=== PATIENT | female | born 1945 | race Caucasian/White ===

== ENCOUNTER → 2018-06-02 09:23 | Outpatient (CLI) | payer MEDICARE, OTHER, SELFPAY ==
[2018-06-02 09:54] LABS: Add Manual Diff / Slide Review NO; Basophils Percent Auto 0.6 % (0-2); Eosinophils Percent Auto 2.9 % (2-4); Hematocrit 40.5 % (36-46); Hemoglobin 13.7 g/dL (12.0-16.0); Lymphocytes Percent Auto 42.6 % (25-40); Mean Corpuscular HGB Conc 33.9 % (30-36); Mean Corpuscular Hemoglobin 30.4 PG (26-34); Mean Corpuscular Volume 89.7 fL (80-100); Monocytes Percent Auto 6.2 % (3-14); Neutrophils Absolute Auto 3400 /uL (3000-5900); Neutrophils Percent Auto 47.7 % (50-75); Platelet Count 300 X10^3/uL (150-400); Red Blood Cell Count 4.52 X10^6/uL (4.0-5.2); Red Cell Distribution Width 13.4 % (11.6-14.8); White Blood Cell Count 7.2 X10^3/uL (4.5-11.0)
[2018-06-02 10:24] LABS: Alanine Aminotransferase 29 IU/L (9-52); Albumin 4.5 g/dL (3.5-5.0); Albumin Globulin Ratio 1.8 (1.0-2.8); Alkaline Phosphatase 77 U/L (38-126); Aspartate Aminotransferase 25 IU/L (14-36); BUN Creatinine Ratio 28.8 (6-22); Bilirubin Total 0.5 mg/dL (0.2-1.3); Blood Urea Nitrogen 23 mg/dL (7-17); Calcium 9.9 mg/dL (8.4-10.2); Carbon Dioxide 29 mmol/L (22-32); Chloride 102 mmol/L (98-107); Cholesterol 262 mg/dL (140-199); Estimated Glomerular Filt Rate > 60.0 mL/min (>60); Globulin 2.5 g/dL (1.7-4.1); Glucose 108 mg/dL (80-110); HDL Cholesterol 83 mg/dL (40-60); HEMOLYSIS < 15 (0-50); LDL Cholesterol Calculated 161 mg/dL (<100); Sodium 141 mmol/L (137-145); Triglycerides 88 mg/dL (35-150)
== END ==
PROVIDERS: PCP Physician Assistant; Visit Provider Physician Assistant
DX: E78.2 Mixed hyperlipidemia (principal)
CPT/HCPCS: 36415; 80053; 80061; 85025

== ENCOUNTER → 2018-07-19 09:54 | Outpatient (CLI) | payer MEDICARE, OTHER, SELFPAY ==
--- NOTE | 2018-07-19 | DI.MG.S_ITS ---
BILATERAL DIGITAL SCREENING MAMMOGRAM 3D/2D WITH CAD: 07/19/2018 CLINICAL: Routine screening. Family history of breast cancer. Comparison is made to exams dated: 07/05/2017 mammogram, 06/17/2016 mammogram, and 06/13/2015 mammogram - [facility]. There are scattered fibroglandular elements in both breasts. Current study was also evaluated with a Computer Aided Detection (CAD) system. No significant masses, calcifications, or other findings are seen in either breast. There has been no significant interval change. IMPRESSION: NEGATIVE There is no mammographic evidence of malignancy. A 1 year screening mammogram is recommended.(07/20/2019) This exam was interpreted at Station ID: [id number]. NOTE: For mammograms, a report in lay terms will be sent to the patient. Approximately 15% of breast malignancies will not be visualized mammographically. In the management of a palpable breast mass, a negative mammogram must not discourage biopsy of a clinically suspicious lesion. Electronically Signed By: Xavi robbins/layla:07/19/2018 11:06:14 copy to: Razia Syed letter sent: Normal Exam ACR BI-RADS Category 1: Negative 3341F
== END ==
PROVIDERS: PCP Physician Assistant; Visit Provider Physician Assistant
DX: Z12.31 Encounter for screening mammogram for malignant neoplasm of breast (principal); Z80.3 Family history of malignant neoplasm of breast; Z13.820 Encounter for screening for osteoporosis; M85.851 Other specified disorders of bone density and structure, right thigh; Z78.0 Asymptomatic menopausal state; Z90.722 Acquired absence of ovaries, bilateral; Z82.62 Family history of osteoporosis
CPT/HCPCS: 77063; 77067; 77080

== ENCOUNTER → 2019-03-19 10:26 | Outpatient (CLI) | payer MEDICARE, OTHER, SELFPAY ==
--- NOTE | 2019-03-19 | DI.RAD.S_ITS ---
PROCEDURE: XR FOOT LT MIN 3V INDICATIONS: LEFT FOOT PAIN TECHNIQUE: 3 views of the foot were acquired. COMPARISON: [facility], , FOOT 3V RIGHT, 02/07/2014, 11:20. FINDINGS: Bones: No dislocations. No suspicious bony lesions. There is a intra-articular fracture involving the medial base of the fifth proximal phalanx. It is mildly displaced. A no additional acute trauma found. Soft tissues: No tibiotalar joint effusion. Achilles tendon appears normal. IMPRESSION: Intra-articular fracture base of the fifth proximal phalanx. Dictated by: Néstor Parrish M.D. on 03/19/2019 at 11:15 Approved by: Néstor Parrish M.D. on 03/19/2019 at 11:16
== END ==
PROVIDERS: PCP Physician Assistant; Visit Provider Student in an Organized Health Care Education/Training Program
DX: M79.672 Pain in left foot (principal); S92.512A Displaced fracture of proximal phalanx of left lesser toe(s), initial encounter for closed fracture
CPT/HCPCS: 73630

== ENCOUNTER → 2019-03-26 11:00 | Outpatient (CLI) | payer MEDICARE, OTHER, SELFPAY | PROVIDERS: PCP Physician Assistant; Visit Provider Student in an Organized Health Care Education/Training Program | DX: K90.41 Non-celiac gluten sensitivity (principal) | CPT/HCPCS: 36415; 86003 ==

== ENCOUNTER 2019-04-07 21:48 | Emergency (ER) | payer MEDICARE, OTHER, SELFPAY ==
[2019-04-07 22:03] VITALS: BP 144/83; PULSE 97; RESP 22; TEMP 36.8; O2SAT 98; BMI 22.7
--- NOTE | 2019-04-07 22:14 | PC.NURSE ---
Denies any throat pain or chest pain, hx of gastric ulcer, liver disease, travel outside [place], unusual night sweats, weight loss
--- NOTE | 2019-04-07 22:22 | DI.RAD.S_ITS ---
PROCEDURE: XR CHEST 2V INDICATIONS: hemoptysis TECHNIQUE: 2 views of the chest were acquired. COMPARISON: [facility], , CHEST 1 VIEW, 06/12/2017, 13:19. FINDINGS: Surgical changes and devices: Postoperative changes of the cervical spine are incidentally noted. Lungs and pleura: Lungs are clear. No pleural effusions or pneumothorax. Mediastinum: Mediastinal contours are normal. Heart size is normal. Bones and chest wall: No suspicious bony abnormalities. Soft tissues appear unremarkable. IMPRESSION: Stable chest. No acute cardiopulmonary process is evident. Dictated by: Seferino Can M.D. on 04/08/2019 at 7:24 Approved by: Seferino Can M.D. on 04/08/2019 at 7:26
[2019-04-07 22:43] VITALS: RESP 20; O2SAT 96
--- NOTE | 2019-04-07 22:43 | PC.NURSE ---
Noticed pt having frequent dry forceful coughing with blood tinged mucus. RT informed about net treatment
[2019-04-07] MEDS: ALBUTEROL/IPRATROPIUM 3 ML AMPUL INH (22:46)
[2019-04-07 22:47] VITALS: PULSE 88; RESP 16; O2SAT 93
--- NOTE | 2019-04-07 22:53 | ED_ITS ---
HPI - URI/Sore Throat General Chief Complaint: Upper Respiratory Symptoms Stated Complaint: coughing up blood Time Seen by Provider: 04/07/19 22:00 Source: patient Mode of arrival: ambulatory Limitations: no limitations History of Present Illness HPI Narrative: Patient is a 73-year-old female. States she was just recently diagnosed with ?allergic asthma ?was prescribed an albuterol inhaler by primary provider. She states that earlier this evening she had a sudden onset of a coughing fit. Also is having some shortness of breath. Did take her albuterol inhaler. States she had multiple episodes of coughing up blood streaked sputum. He is not coughing up any clots. No chest pain. No shortness of breath. Does take a antihistamine and Flonase on a daily basis for allergies. No recent travel. Related Data Home Medications Medication Instructions Recorded Confirmed cholecalciferol (vitamin D3) 2,000 iu PO QDAY #0 07/26/17 [Vitamin D3] escitalopram oxalate 5 mg PO QDAY #0 07/26/17 naproxen sodium [Aleve] 220 mg PO #0 07/26/17 Allergies Allergy/AdvReac Type Severity Reaction Status Date / Time diclofenac [From VOLTAREN] Allergy Severe DIARRHEA, Verified 04/07/19 22:03 CRAMPS simvastatin [SIMVASTATIN] Allergy Severe MUSCLE Verified 04/07/19 22:03 SPASMS, LEG CRAMPS, EXTREME FATIGUE codeine [CODEINE] Allergy Intermediate PROLONGED Verified 04/07/19 22:03 DROWSINESS SINGULAR Allergy Severe VIOLENT Uncoded 04/07/19 22:03 DREAMS Review of Systems Constitutional Denies fever(s) Eyes Denies itchy eyes ENT Ears, Nose, Mouth, and Throat: Denies throat swelling Cardiovascular Denies chest pain, Denies dyspnea and Denies dyspnea on exertion Respiratory Reports cough, Reports hemoptysis, Denies dyspnea and Denies dyspnea on exertion Gastrointestinal Gastrointestinal: Denies abdominal pain Genitourinary Denies dysuria Integumentary/Breasts Denies new lesions and Denies rash Neurologic Denies behavioral changes Psychiatric Denies behavioral changes Hematologic/Lymphatic Denies easy bleeding and Denies easy bruising Allergic/Immunologic Denies urticaria, Denies itchy eyes and Denies throat swelling [facility] Medical History Seasonal allergies (Acute) Social History Smoking Status: Never smoker Social History Smoking Status: Never smoker Exam Initial Vital Signs Initial Vital Signs: Vital Signs Temperature 98.3 F 04/07/19 22:03 Pulse Rate 97 H 04/07/19 22:03 Respiratory Rate 22 04/07/19 22:03 Blood Pressure 144/83 H 04/07/19 22:03 Pulse Oximetry 98 04/07/19 22:03 Const General: cooperative, healthy appearing, comfortable, well developed, well groomed and No acute distress Orientation: alert, awake and oriented x3 HENMT Head: normal to inspection and normocephalic Nose: external nose normal Face and sinus: normal facial exam Resp Effort & Inspection: normal respiratory effort Auscultation: clear to auscultation bilaterally Cardio Rate: regular rate Rhythm: regular rhythm Pulses: radial pulses present GI Inspection: non-distended Palpation: soft, No firm and No tender Skin Lesions: no lesions Rashes: no rashes Neuro General: alert, awake and oriented x3 Cognition: normal cognition Speech: speech normal Gait: normal gait Extrem General: normal to inspection and capillary refill normal Psych Appearance: grossly normal and well kempt Scores GCS Katya coma scale eye opening: Spontaneous Katya coma scale verbal response: Orientated Goodman coma scale motor response: Obey commands Goodman coma scale total score: 15 Course Orders Ordered: ED Orders 04/07/19 22:22 Chest [XR chest 2V] Stat Discontinued Medications Albuterol/Ipratropium (Duoneb) 3 ml INH NOW ONE Stop: 04/07/19 22:36 Last Admin: 04/07/19 22:46 Dose: 3 ml Vital Signs - 8 hr 04/07/19 22:03 04/07/19 22:43 04/07/19 22:47 Temperature 98.3 F Pulse Rate 97 H 88 Respiratory Rate 22 20 16 Blood Pressure 144/83 H Blood Pressure [Left Arm] Pulse Oximetry 98 96 93 04/07/19 23:30 04/08/19 00:14 Temperature Pulse Rate 84 82 Respiratory Rate 18 18 Blood Pressure 103/62 Blood Pressure [Left Arm] 105/63 Pulse Oximetry 98 96 MDM - URI/Sore Throat Imaging Data Chest x-ray: Attestation: I personally reviewed and interpreted this imaging study as follows: My impression: No pneumonia, no acute process, no pneumothorax MDM Narrative Medical decision making narrative: Patient is not hypoxic, not tachypneic, she did receive a nebulizer here in the emergency department and she stated that this did seem to improve her cough somewhat. I have a low suspicion for pulmonary embolism despite the blood streaked sputum. She is not having any chest pain. I do suspect that the blood-streaked sputum secondary to irritation from the coughing episodes. She was given a spacer here in the emergency department in further training on the albuterol and the spacer. She is going to continue her allergy treatment. She was given return precautions and follow-up instructions. She expressed understanding and agreement plan. Discharge Plan Departure Patient Disposition: Home Clinical Impression: Reactive airway disease Qualifiers: Asthma severity: unspecified severity Asthma persistence: unspecified Asthma complication type: uncomplicated Qualified Code(s): J45.909 - Unspecified asthma, uncomplicated Discharge Date/Time: 04/08/19 00:14 Interventions: ED Discharge Assessment Last Done: 04/08/19 00:14 Instructions: Reactive Airway Disease-Adult Activity Restrictions/Additional Instructions: Continue all of your medications as directed. Contact your primary provider for follow-up. Return to the emergency department for any new or worsening symptoms Prescriptions: No Action escitalopram oxalate 5 MG tablet 5 mg PO QDAY Qty: 0 RF: 0 cholecalciferol (vitamin D3) [Vitamin D3] 2,000 UNIT capsule 2,000 iu PO QDAY Qty: 0 RF: 0 naproxen sodium [Aleve] 220 MG capsule 220 mg PO Qty: 0 RF: 0 Referrals: Razia Syed PA-C [Primary Care Provider] -
--- NOTE | 2019-04-07 23:15 | PC.NURSE ---
Pt reports cough improved and breathing better
[2019-04-07 23:30] VITALS: BP 105/63; PULSE 84; RESP 18; O2SAT 98
[2019-04-08 00:14] VITALS: BP 103/62; PULSE 82; RESP 18; O2SAT 96
== END 2019-04-08 00:14 | disposition home or self-care (01) ==
PROVIDERS: Emergency Provider Emergency Medicine; PCP Physician Assistant
DX: J45.909 Unspecified asthma, uncomplicated (principal)
CPT/HCPCS: 71046; 94640; 99283

== ENCOUNTER → 2019-06-20 08:57 | Outpatient (CLI) | payer MEDICARE, OTHER, SELFPAY ==
--- NOTE | 2019-06-22 12:18 | PM.PFT.1 ---
Pulmonary Function Test Referral & Results Date Patient Seen: 06/20/19 Requesting provider: Razia Syed Results: The spirometry demonstrates an FVC of 3.84 L which is 116% of predicted. The FEV1 was measured at 2.77 L which is 110% of predicted. The FEV1/FVC ratio was 72 which is 95% of predicted. Following the administration of bronchodilator there was no appreciable change to above normal numbers. Lung volumes show an SVC of 3.8 L which is 123% of predicted. The diffusing capacity was measured at 17.46 which is 61% of predicted. No hemoglobin value was provided, so no correction for potential anemia could be made, if appropriate. The maximum voluntary ventilation was normal Interpretation: This study demonstrates normal spirometry but moderately reduced diffusing capacity suggesting disease of the capillary alveolar level
== END ==
PROVIDERS: PCP Physician Assistant; Visit Provider Physician Assistant
DX: J45.20 Mild intermittent asthma, uncomplicated (principal); J98.8 Other specified respiratory disorders
CPT/HCPCS: 94060; 94726; 94729

== ENCOUNTER → 2019-07-24 11:15 | Outpatient (CLI) | payer MEDICARE, OTHER, SELFPAY ==
--- NOTE | 2019-07-24 | DI.MG.S_ITS ---
BILATERAL DIGITAL SCREENING MAMMOGRAM 3D/2D WITH CAD: 07/24/2019 CLINICAL: Routine screening. Family history of breast cancer. Comparison is made to exams dated: 07/19/2018 mammogram, 07/05/2017 mammogram, and 06/17/2016 mammogram - [facility]. There are scattered fibroglandular elements in both breasts. Current study was also evaluated with a Computer Aided Detection (CAD) system. There is a benign intramammary node in the left breast. No significant masses, calcifications, or other findings are seen in either breast. There has been no significant interval change. IMPRESSION: There is no mammographic evidence of malignancy. A 1 year screening mammogram is recommended. This exam was interpreted at Station ID: [id number]. NOTE: For mammograms, a report in lay terms will be sent to the patient. Approximately 15% of breast malignancies will not be visualized mammographically. In the management of a palpable breast mass, a negative mammogram must not discourage biopsy of a clinically suspicious lesion. Electronically Signed By: Manav davis/layla:07/24/2019 13:09:34 copy to: Razia Syed letter sent: Normal Exam ACR BI-RADS Category 2: Benign Finding(s) 3342F
--- NOTE | 2019-07-24 11:20 | DI.CT.S_ITS ---
PROCEDURE: CT CHEST HIGH RESOLUTION INDICATIONS: Abnormal results of pulmonary function studies TECHNIQUE: Noncontrast 1.0 and 5.0 mm thick contiguous axial sections from the pulmonary apex to the posterior costophrenic angles, with 7 mm thick coronal and sagittal MIP reformats. 1 mm thick dynamic expiratory images acquired through the upper, mid, and lower lungs. 1.0 mm thick axial sections acquired from the venkatesh to the posterior costophrenic angles in the prone end-inspiration position. For radiation dose reduction, the following was used: automated exposure control, adjustment of mA and/or kV according to patient size. COMPARISON: None. FINDINGS: Image quality: Excellent. Lungs: No pulmonary fibrosis or alveolitis is found. By this examination there is no suspicion for underlying pneumonia or neoplasm. Pleura: No pleural effusions or pneumothorax. Mediastinum: Heart size is normal. No pericardial effusion. Thoracic aorta and central pulmonary arteries are normal in size. Esophagus is normal in caliber. Bones and chest wall: No suspicious bony lesions. No vertebral body compression fractures. Abdomen: Visualized upper abdominal solid organs and bowel loops appear normal. IMPRESSION: Normal for age, source of abnormal pulmonary function tests is not identified. Dictated by: Néstor Parrish M.D. on 07/24/2019 at 13:53 Approved by: Néstor Parrish M.D. on 07/24/2019 at 13:55
== END ==
PROVIDERS: PCP Physician Assistant; Visit Provider Physician Assistant
DX: Z12.31 Encounter for screening mammogram for malignant neoplasm of breast (principal); Z80.3 Family history of malignant neoplasm of breast; R94.2 Abnormal results of pulmonary function studies
CPT/HCPCS: 71250; 77063; 77067

== ENCOUNTER → 2020-04-25 09:39 | Outpatient (CLI) | payer MEDICARE, OTHER, SELFPAY ==
--- NOTE | 2020-04-25 | DI.MRI.S_ITS ---
PROCEDURE: MR CERVICAL SPINE WO CON INDICATIONS: spinal stenosis TECHNIQUE: Noncontrast sagittal T1 spin echo and T2 fast spin echo, sagittal STIR, foraminal oblique sagittal T2 fast spin echo, and axial gradient echo or T2 fast spin echo through the cervical spine. COMPARISON: [facility], , CERVICAL SPINE 2 OR 3 VIEWS, 10/28/2015, 8:30. [facility], MR, C-SPINE WITHOUT CONTRAST, 07/27/2017, 17:08. [facility], MR, C-SPINE WITHOUT CONTRAST, 08/20/2015, 9:15. FINDINGS: Image quality: Diagnostic, with note made of motion artifact. There is artifact associated with the metallic hardware. Alignment and Curvature: There is mild retrolisthesis seen at the C4-C5 level. Bone Marrow: Marrow demonstrates normal overall signal. Spinal Cord: Visualized spinal cord has normal size and signal. No cerebellar tonsillar herniation. Paraspinous Soft Tissues: No paravertebral masses. Prevertebral soft tissues are normal in thickness. C2-C3: The disc height is well-preserved. Loss of disc signal is seen at this level. No significant neural foraminal or central canal narrowing can be seen. When comparison is made with the prior examination, these findings are similar. C3-C4: Moderate loss of disc height is seen. Loss of disc signal is seen. Moderate generalized disc osteophyte complex is seen. There is a central disc osteophyte protrusion seen. There is moderate to prominent right-sided and [id number] left-sided facet hypertrophy seen. There is moderate bilateral neural foraminal narrowing seen. Mild to moderate central canal narrowing is seen. These imaging findings have progressed compared to the prior study. C4-C5: Moderate to severe loss of disk height and disk signal can be seen. Reactive marrow endplate changes are seen, which are hyperintense on T1-weighted and T2-weighted imaging and most consistent with fatty metaplasia (Modic type II changes). At least moderate disc osteophyte complex is seen. Moderate facet hypertrophy is seen, right worse than left. There is moderate to severe right-sided and at least moderate left-sided neural foraminal narrowing seen. Mild central canal narrowing is seen. Mild progression compared to 2017. C5-C6: An anteriorly placed disk fusion device is seen. Moderate disc osteophyte complex is seen, with a central/right disc osteophyte protrusion. There is moderate right-sided and [id number] left-sided facet hypertrophy seen at this level. There is no significant right-sided and at least moderate left-sided neural foraminal narrowing seen. Mild to moderate central canal narrowing is seen. When comparison is made with the prior examination, these findings are similar. C6-C7: An anteriorly placed disc fusion device is seen at this level. Moderate generalized disc osteophyte complex is seen. Mild to moderate facet hypertrophy is seen. There is moderate bilateral neural foraminal narrowing seen, left worse than right. Minimal central canal narrowing is seen. When comparison is made with the prior examination, these findings are similar. C7-T1: The disc height is well-preserved. Loss of disc signal is seen at this level. A mild degree of generalized disc osteophyte complex is seen. There is mild to moderate left-sided and right-sided neural foraminal narrowing seen. No central canal narrowing is seen. When comparison is made with the prior examination, these findings are similar. IMPRESSION: Anteriorly placed disk fusion devices are seen at C5-C6 and C6-C7. Mild interval progression of degenerative change at C3-C4. The degenerative changes otherwise appear similar to 2017. Dictated by: Harpreet Carreon M.D. on 04/25/2020 at 10:20 Approved by: Harpreet Carreon M.D. on 04/25/2020 at 10:27
== END ==
PROVIDERS: PCP Physician Assistant; Referring Provider Orthopaedic Surgery; Visit Provider Orthopaedic Surgery
DX: M48.02 Spinal stenosis, cervical region (principal); M47.812 Spondylosis without myelopathy or radiculopathy, cervical region; Z98.1 Arthrodesis status
CPT/HCPCS: 72141

== ENCOUNTER 2020-07-10 18:48 | Emergency (ER) | payer MEDICARE, OTHER, SELFPAY ==
[2020-07-10 18:50] VITALS: BP 187/108; PULSE 102; RESP 18; TEMP 35.8; O2SAT 97; BMI 22.2
[2020-07-10 19:37] LABS: Appearance Urine UA CLEAR; Bilirubin Urine UA NEGATIVE (NEGATIVE); Color Urine UA YELLOW; Glucose Urine UA NEGATIVE (Negative); Ketones Urine UA NEGATIVE (NEGATIVE); Leukocyte Esterase Urine UA 1+ (NEGATIVE); Nitrite Urine UA NEGATIVE (Negative); Occult Blood Urine UA 3+ (Negative); Protein Urine UA 2+ (Negative)
[2020-07-10 19:39] LABS: Bacteria Urine Few (2-10); Culture Indicated Urine Specimen Cultured; RBC Urine 30-100/HPF (0-5/HPF); Squamous Epithelial Cell Urine 1-5 /HPF (0-5/HPF); WBC Urine 30-100/HPF (0-5/HPF); pH Urine UA 6.5 (4.5-8.0)
--- NOTE | 2020-07-10 20:45 | ED_ITS ---
HPI - Female Genitourinary General Chief complaint: Urogenital-Female Stated complaint: states bladder infection Time Seen by Provider: 07/10/20 19:01 Source: patient Mode of arrival: Ambulatory Limitations: no limitations History of Present Illness HPI Narrative: 74-year-old female nonsmoker with noncontributory medical history presents with a chief complaint few hours urinary frequency, dysuria and suprapubic cramping. She has small amount blood in her urine and states her symptoms are very much consistent with prior episodes urinary tract infection. She denies any fever chills. She has no nausea, vomiting or back pain. MD Complaint: dysuria and UTI Location: suprapubic Severity: moderate Quality: Cramping Duration: intermittent Relieving factors: none Exacerbating factors: urination Urinary symptoms: Difficulty Urinating, Dysuria, Foul Smelling Urine, Frequency and Hematuria Patient : No Associated symptoms: denies other symptoms Related Data Home Medications Medication Instructions Recorded Confirmed cholecalciferol (vitamin D3) 2,000 iu PO QDAY #0 07/26/17 [Vitamin D3] escitalopram oxalate 5 mg PO QDAY #0 07/26/17 naproxen sodium [Aleve] 220 mg PO #0 07/26/17 Previous Rx's Medication Instructions Recorded cephalexin [Keflex] 500 mg PO QID 7 Days #28 cap 07/10/20 fluconazole 150 mg PO Q3D #2 tab 07/10/20 Allergies Allergy/AdvReac Type Severity Reaction Status Date / Time diclofenac [From VOLTAREN] Allergy Severe DIARRHEA, Verified 07/10/20 19:09 CRAMPS simvastatin [SIMVASTATIN] Allergy Severe MUSCLE Verified 07/10/20 19:09 SPASMS, LEG CRAMPS, EXTREME FATIGUE codeine [CODEINE] Allergy Intermediate PROLONGED Verified 07/10/20 19:09 DROWSINESS SINGULAR Allergy Severe VIOLENT Uncoded 07/10/20 19:09 DREAMS Review of Systems Constitutional Constitutional: Denies chills, Denies fatigue, Denies fever(s), Denies frequent falls, Denies lethargy and Denies weakness Eyes Eyes: Denies change in vision, Denies eye discharge, Denies irritation and Denies loss of vision ENT Ears, Nose, Mouth, and Throat: Denies change in voice, Denies dizziness, Denies neck pain, Denies sore throat and Denies throat swelling Cardiovascular Cardiovascular: Denies chest pain, Denies irregular heart rhythm, Denies lightheadedness, Denies palpitations, Denies dyspnea, Denies dyspnea on exertion and Denies orthopnea Respiratory Respiratory: Denies cough, Denies dyspnea, Denies dyspnea on exertion and Denies wheezing Gastrointestinal Gastrointestinal: Denies abdominal pain, Denies change in bowel habits, Denies diarrhea, Denies nausea and Denies vomiting Genitourinary Genitourinary: Reports hematuria, Reports dysuria and Reports dysuria Genitourinary: Reports hematuria, Reports dysuria and Reports dysuria Musculoskeletal Musculoskeletal: Denies neck pain and Denies numbness Integumentary/Breasts Skin/Breast: Denies pruritus, Denies erythema, Denies rash and Denies wounds Neurologic Neurologic: Denies behavioral changes, Denies confusion, Denies dizziness, Denies frequent falls, Denies loss of vision, Denies numbness and Denies weakness Psychiatric Psychiatric: Denies anxiety, Denies behavioral changes, Denies confusion, Denies depression, Denies homicidal ideation and Denies suicidal ideation Endocrine Endocrine: Denies fatigue, Denies flushing and Denies palpitations Hematologic/Lymphatic Hematologic/Lymphatic: Denies easy bruising Allergic/Immunologic Allergic/Immunologic: Denies urticaria, Denies throat swelling and Denies wheezing Patient History Medical History Seasonal allergies (Acute) alcohol intake frequency: a few times a week Substance Use Type: does not use Exam Narrative Exam Narrative: GEN: AOx3 and in mild distress EYES: Pupils are equal, round, and reactive to light and accommodation. Extraoccular muscles are intact bilaterally. There is no subconjunctival hemorrhage or exudate. CHEST: Lungs are clear to auscultation bilaterally and free of wheezes, rales, or rhonchi. Heart rate is regular rhythm, there are no murmurs, clicks, rubs, or gallops. There is no chest wall tenderness. ABD: Abdomen is soft and mildly tender in the suprapubic region There is no guarding or rebound. Bowel sounds are normal in all 4 quadrants. There is no mass or organomegaly. EXT: Full painless ROM of all extremities with no loss of sensation or strength. SKIN: Warm, pink, and dry. No erythema or rash Initial Vital Signs Initial Vital Signs: Vital Signs Temperature 96.5 F L 10/01/20 18:50 Pulse Rate 102 H 07/10/20 18:50 Respiratory Rate 18 07/10/20 18:50 Blood Pressure 187/108 H 07/10/20 18:50 Pulse Oximetry 97 07/10/20 18:50 Course Orders Ordered: ED Orders 07/10/20 19:29 Urinalysis and Microscopic Stat Urine Culture Stat Discontinued Medications Cefazolin Sodium (Keflex 250 Mg Prepack) 1 bottle MISC SEEINSTR ONE Stop: 07/10/20 20:48 Last Admin: 07/10/20 20:58 Dose: 500 mg Documented by: SUHAS Vital Signs Vital signs: Vital Signs - 8 hr 07/10/20 18:50 07/10/20 21:05 Temperature 96.5 F L Pulse Rate 102 H 74 Respiratory Rate 18 17 Blood Pressure 187/108 H 148/83 H Pulse Oximetry 97 98 MDM - Female Genitourinary Lab Data Labs: Lab Results 07/10/20 Range/Units 19:29 Urine Color Yellow Urine Appearance Clear Urine pH 6.5 (4.5-8.0) Ur Specific Isabella 1.020 (1.000-1.035) Urine Protein 2+ H (Negative) Urine Glucose (UA) Negative (Negative) g/dL Urine Ketones Negative (NEGATIVE) Urine Occult Blood 3+ H (Negative) Urine Nitrate Negative (Negative) Urine Bilirubin Negative (NEGATIVE) Urine Urobilinogen 1.0 (0.2) E.U./dL Ur Leukocyte Esterase 1+ H (NEGATIVE) Urine RBC 30-100/hpf H (0-5/HPF) Urine WBC 30-100/hpf H (0-5/HPF) Ur Squamous Epith Cells 1-5 /hpf (0-5/HPF) Urine Bacteria Few (2-10) H (None) Ur Culture Indicated? Specimen cultured Discharge Plan Departure Patient Disposition: Home Clinical Impression: Acute UTI Discharge Date/Time: 07/10/20 21:06 Instructions: DI for Urinary Tract Infection (UTI) Activity Restrictions/Additional Instructions: *You have been diagnosed with [acute urinary tract infection] *What to do: *Take medications as directed: Prescriptions electronically transmitted to the [facility] [place] at your request *Follow up with your primary care provider in 2-3 days, call for an appointment. Let them know you were seen in the Emergency Department and that we ask that you be seen in follow up *Return to ER if you should have any new, worsening or concerning symptoms, such as [fever greater than 101, shaking chills, vomiting, back pain or other bothersome symptoms] Prescriptions: New fluconazole 150 mg tablet 150 mg PO Q3D Qty: 2 RF: 0 cephalexin [Keflex] 500 mg capsule 500 mg PO QID 7 Days Qty: 28 RF: 0 No Action escitalopram oxalate 5 MG tablet 5 mg PO QDAY Qty: 0 RF: 0 cholecalciferol (vitamin D3) [Vitamin D3] 2,000 UNIT capsule 2,000 iu PO QDAY Qty: 0 RF: 0 naproxen sodium [Aleve] 220 MG capsule 220 mg PO Qty: 0 RF: 0 Referrals: Razia Syed PA-C [Primary Care Provider] -
[2020-07-10] MEDS: cephALEXin 250 MG PREPACK 1 BOTTLE MISC (20:58)
[2020-07-10 21:05] VITALS: BP 148/83; PULSE 74; RESP 17; O2SAT 98
== END 2020-07-10 21:06 | disposition home or self-care (01) ==
PROVIDERS: Emergency Provider Emergency Medicine; PCP Physician Assistant
DX: N39.0 Urinary tract infection, site not specified (principal)
CPT/HCPCS: 81001; 87077; 87086; 87186; 99281; 99282

== ENCOUNTER → 2020-07-26 15:40 | Outpatient (CLI) | payer MEDICARE, OTHER, SELFPAY ==
--- NOTE | 2020-07-26 | DI.MG.S_ITS ---
BILATERAL DIGITAL SCREENING MAMMOGRAM 3D/2D WITH CAD: 07/26/2020 CLINICAL: Routine screening. Family history of breast cancer. Comparison is made to exams dated: 07/24/2019 mammogram, 07/19/2018 mammogram, and 07/05/2017 mammogram - [facility]. There are scattered fibroglandular elements in both breasts. Current study was also evaluated with a Computer Aided Detection (CAD) system. No significant masses, calcifications, or other findings are seen in either breast. There has been no significant interval change. IMPRESSION: NEGATIVE There is no mammographic evidence of malignancy. A 1 year screening mammogram is recommended. This exam was interpreted at Station ID: [id number]. NOTE: For mammograms, a report in lay terms will be sent to the patient. Approximately 15% of breast malignancies will not be visualized mammographically. In the management of a palpable breast mass, a negative mammogram must not discourage biopsy of a clinically suspicious lesion. Electronically Signed By: Enmanuel suarez/layla:07/28/2020 12:22:20 copy to: Razia Syed letter sent: Normal Exam ACR BI-RADS Category 1: Negative 3341F
== END ==
PROVIDERS: PCP Physician Assistant; Referring Provider Physician Assistant; Visit Provider Physician Assistant
DX: Z12.31 Encounter for screening mammogram for malignant neoplasm of breast (principal); Z80.3 Family history of malignant neoplasm of breast
CPT/HCPCS: 77063; 77067

== ENCOUNTER → 2020-08-05 07:29 | Outpatient (CLI) | payer MEDICARE, OTHER, SELFPAY ==
[2020-08-05 08:19] LABS: Add Manual Diff / Slide Review NO; Basophils Absolute Auto 0 /uL (0-100); Basophils Percent Auto 0.6 % (0-2); Eosinophils Absolute Auto 200 /uL (0-450); Eosinophils Percent Auto 3.4 % (2-4); Hematocrit 39.6 % (36-46); Lymphocytes Absolute Auto 3100 /uL (1100-4500); Lymphocytes Percent Auto 43.2 % (25-40); Mean Corpuscular HGB Conc 32.8 % (30-36); Mean Corpuscular Hemoglobin 29.6 PG (26-34); Mean Corpuscular Volume 90.5 fL (80-100); Monocytes Absolute Auto 400 /uL (0-900); Monocytes Percent Auto 5.6 % (3-14); Neutrophils Absolute Auto 3400 /uL (1500-7000); Neutrophils Percent Auto 47.2 % (50-75); Platelet Count 279 X10^3/uL (150-400); Red Blood Cell Count 4.37 X10^6/uL (4.0-5.2); Red Cell Distribution Width 13.8 % (11.6-14.8); White Blood Cell Count 7.2 X10^3/uL (4.5-11.0)
[2020-08-05 08:58] LABS: Alanine Aminotransferase 27 IU/L (<35); Albumin 4.3 g/dL (3.5-5.0); Albumin Globulin Ratio 1.8 (1.0-2.8); Alkaline Phosphatase 55 U/L (38-126); Aspartate Aminotransferase 28 IU/L (14-36); BUN Creatinine Ratio 27.9 (6-22); Bilirubin Total 0.5 mg/dL (0.2-1.3); Blood Urea Nitrogen 17 mg/dL (7-17); Calcium 9.7 mg/dL (8.4-10.2); Carbon Dioxide 30 mmol/L (22-32); Chloride 107 mmol/L (98-107); Cholesterol 209 mg/dL (140-199); Estimated Glomerular Filt Rate > 60.0 mL/min (>60); Globulin 2.4 g/dL (1.7-4.1); Glucose 110 mg/dL (80-110); HDL Cholesterol 74 mg/dL (40-60); HEMOLYSIS < 15 (0-50); LDL Cholesterol Calculated 111 mg/dL (<100); Potassium 4.7 mmol/L (3.4-5.1); Sodium 141 mmol/L (137-145); Total Protein 6.7 g/dL (6.3-8.2); Triglycerides 120 mg/dL (35-150)
== END ==
PROVIDERS: PCP Physician Assistant; Referring Provider Physician Assistant; Visit Provider Physician Assistant
DX: E78.2 Mixed hyperlipidemia (principal); R03.0 Elevated blood-pressure reading, without diagnosis of hypertension
CPT/HCPCS: 36415; 80053; 80061; 85025

== ENCOUNTER → 2020-08-13 13:03 | Outpatient (CLI) | payer MEDICARE, OTHER, SELFPAY | PROVIDERS: PCP Physician Assistant; Referring Provider Physician Assistant; Visit Provider Physician Assistant | DX: M85.851 Other specified disorders of bone density and structure, right thigh (principal); Z78.0 Asymptomatic menopausal state; Z90.722 Acquired absence of ovaries, bilateral | CPT/HCPCS: 77080 ==

== ENCOUNTER → 2021-07-27 14:54 | Outpatient (CLI) | payer MEDICARE, OTHER, SELFPAY ==
--- NOTE | 2021-07-27 | DI.MG.S_ITS ---
BILATERAL DIGITAL SCREENING MAMMOGRAM 3D/2D WITH CAD: 07/27/2021 CLINICAL: Routine screening. Family history of breast cancer. Comparison is made to exams dated: 07/26/2020 mammogram, 07/24/2019 mammogram, 07/19/2018 mammogram, 07/05/2017 mammogram, and 06/17/2016 mammogram - [facility]. There are scattered fibroglandular elements in both breasts. Current study was also evaluated with a Computer Aided Detection (CAD) system. No significant masses, calcifications, or other findings are seen in either breast. There has been no significant interval change. IMPRESSION: NEGATIVE There is no mammographic evidence of malignancy. A 1 year screening mammogram is recommended. This exam was interpreted at Station ID: [id number]. NOTE: For mammograms, a report in lay terms will be sent to the patient. Approximately 15% of breast malignancies will not be visualized mammographically. In the management of a palpable breast mass, a negative mammogram must not discourage biopsy of a clinically suspicious lesion. Electronically Signed By: Yo ash/layla:07/27/2021 15:25:21 copy to: Razia Syed letter sent: Normal Exam ACR BI-RADS Category 1: Negative [id number]
== END ==
PROVIDERS: PCP Physician Assistant; Referring Provider Physician Assistant; Visit Provider Physician Assistant
DX: Z12.31 Encounter for screening mammogram for malignant neoplasm of breast (principal); Z80.3 Family history of malignant neoplasm of breast
CPT/HCPCS: 77063; 77067

== ENCOUNTER → 2022-02-15 07:51 | Outpatient (CLI) | payer MEDICARE, OTHER, SELFPAY ==
[2022-02-15 08:53] LABS: Hemoglobin A1C% w Est Avg Glu 5.6 % (4.0-6.0)
[2022-02-15 08:54] LABS: Add Manual Diff / Slide Review NO; Basophils Absolute Auto 100 /uL (0-100); Basophils Percent Auto 0.8 % (0-2); Eosinophils Absolute Auto 200 /uL (0-450); Eosinophils Percent Auto 2.9 % (2-4); Hematocrit 38.4 % (36-46); Hemoglobin 13.1 g/dL (12.0-16.0); Lymphocytes Absolute Auto 2500 /uL (1100-4500); Lymphocytes Percent Auto 38.4 % (25-40); Mean Corpuscular Hemoglobin 30.3 PG (26-34); Monocytes Absolute Auto 400 /uL (0-900); Monocytes Percent Auto 6.3 % (3-14); Neutrophils Absolute Auto 3400 /uL (1500-7000); Neutrophils Percent Auto 51.6 % (50-75); Platelet Count 246 X10^3/uL (150-400); Red Blood Cell Count 4.32 X10^6/uL (4.0-5.2); Red Cell Distribution Width 13.7 % (11.6-14.8); White Blood Cell Count 6.5 X10^3/uL (4.5-11.0)
[2022-02-15 08:59] LABS: BUN Creatinine Ratio 28.6 (6-22); Blood Urea Nitrogen 20 mg/dL (7-17); Calcium 9.1 mg/dL (8.4-10.2); Carbon Dioxide 29 mmol/L (22-32); Chloride 106 mmol/L (98-107); Estimated Glomerular Filt Rate > 60 mL/min (>60); Glucose 109 mg/dL (80-110); HEMOLYSIS < 15 (0-50); Potassium 4.2 mmol/L (3.4-5.1); Sodium 139 mmol/L (137-145)
== END ==
PROVIDERS: PCP Physician Assistant; Referring Provider Orthopaedic Surgery; Visit Provider Orthopaedic Surgery
DX: Z01.818 Encounter for other preprocedural examination (principal); R73.9 Hyperglycemia, unspecified; M25.561 Pain in right knee; Z01.812 Encounter for preprocedural laboratory examination
CPT/HCPCS: 36415; 80048; 83036; 85025; 93005

== ENCOUNTER → 2022-03-01 09:39 | Outpatient (CLI) | payer MEDICARE, OTHER, SELFPAY ==
[2022-03-01 12:27] LABS: COVID19 -Nasal RAPID Negative (Negative)
== END ==
PROVIDERS: PCP Physician Assistant; Visit Provider Family Medicine Sleep Medicine
DX: Z20.822 Contact with and (suspected) exposure to COVID-19 (principal); Z01.812 Encounter for preprocedural laboratory examination
CPT/HCPCS: 87635; C9803

== ENCOUNTER 2022-03-03 06:16 | Day surgery (SDC) | payer MEDICARE, OTHER, SELFPAY ==
[2022-02-23 10:01] VITALS: BMI 22.4
[2022-03-03] VITALS (15 sets, daily range): BP systolic 102–125; BP diastolic 68–86; PULSE 73–115; RESP 10–18; TEMP 35.4–36.4; O2SAT 92–98; BMI 22.4
--- NOTE | 2022-03-03 06:00 | DI.RAD.S_ITS ---
PROCEDURE: XR KNEE RT 1TO2V INDICATIONS: TKA TECHNIQUE: 2 view(s) of the knee acquired. COMPARISON: [facility], , KNEE 3V RIGHT, 01/19/2016, 11:01. FINDINGS: Bones: Patient is status post knee joint arthroplasty. Hardware components are in expected positions. Visualized bony structures are intact. Soft tissues: Overlying postoperative changes are noted. IMPRESSION: Expected appearance status post right total knee arthroplasty. Dictated by: Uyen Rios M.D. on 03/03/2022 at 11:19 Approved by: Uyen Rios M.D. on 03/03/2022 at 11:19
[2022-03-03] MEDS: GABAPENTIN 300 MG CAPSULE PO ×2 (06:58)
[2022-03-03] MEDS: ACETAMINOPHEN 325 MG TABLET 975 MG PO (06:58)
[2022-03-03] MEDS: CELECOXIB 200 MG CAPSULE PO (07:00)
[2022-03-03] MEDS: LACTATED RINGERS 1,000 ML 42 ML IV ×2 (07:07→10:32)
--- NOTE | 2022-03-03 07:32 | PM.PREOP ---
Pre-operative Note COVID-19 COVID-19 status: Negative Result date/Date tested (Pos, Neg/Pending): 03/01/22 Interval Note History & Physical reviewed/Exam performed by Physician: Yes Changes to H&P: No
[2022-03-03] MEDS: ALPRAZolam 0.5 MG TABLET PO (08:14)
[2022-03-03] MEDS: CEFAZOLIN 2 GM/20 ML SYRINGE IV (09:23)
[2022-03-03] MEDS: TRANEXAMIC ACID 1,000 MG VIAL 2000 MG INJ ×2 (09:29→10:19)
--- NOTE | 2022-03-03 09:35 | SUR.OPER ---
Supine on padded OR bed. Pillow under head, arms secured on padded armboards <90 degree abduction. Safety belt across torso. Non-operative leg secured with tape over blanket over lower leg. Operative leg secured in [place].
[2022-03-03] MEDS: BUPIVACAINE LIPOSOME 266 MG/20 ML VIAL INJ (09:38)
[2022-03-03] MEDS: BUPIVACAINE 0.25% W/ EPI 30 ML VIAL 50 ML INJ (09:42)
[2022-03-03] MEDS: MORPHINE 4 MG/ML INJ INJ (09:43)
--- NOTE | 2022-03-03 10:45 | P.OP_ITS ---
Operative Date/Time/Diagnoses Date of procedure: 03/03/22 Time of procedure: 10:45 Pre-op diagnosis: Right knee osteoarthritis Post-op diagnosis: same Procedure & Clinicians Procedure: Right total knee replacement Same procedure as scheduled: Yes Indications: The patient has had progressively worsening right knee pain with radiographic changes consistent with arthritis. Non-operative management has failed and the patient has requested total knee replacement. The risks, benefits and alternatives to surgery were discussed with the patient prior to proceeding. Risks discussed included, but were not limited to, failure to relieve pain, stiffness, infection, nerve damage, deep venous thrombosis, pulmonary embolism, stroke, coma, heart attack, permanent paralysis and , as well as the potential need for eventual revision of the prosthetic. Surgeon: Vlad Fairbanks Industrial Seamstress: Malissa Olson Anesthesia Type: General, Spinal and Local Operative Notes Findings: Severe tricompartmental osteoarthritis which was worst in the lateral compartment. Closure Type: primary Specimen(s): none sent Prosthetic devices, grafts, tissues, transplants, or devices: Implants used in this procedure were manufactured by the [email or web address] and [employer] and included the BCS II Journey total knee replacement with a size 4 right cobalt chromium femur, a size 3 right non porous tibial base plate, a 10 mm cross-linked polyethylene tibial insert and a 32 mm oval Sherry II patellar component. Applied: device(s) Estimated Blood Loss (mL): 25 Blood products transfused: none Tourniquet time (min): 45 Procedure in detail: The patient was seen in the pre-operative area, where the patient identified the right knee as the operative site and this was marked with my initials. The patient received pre-operative antibiotics, and was taken to the operating room and placed on the operative table in the supine position. After satisfactory anesthesia, a time lock expert out was performed. The right leg was encircled with a tourniquet about the proximal thigh, and the leg was prepared from the toes to the tourniquet with ChloroPrep in the usual fashion and draped through sterile drapes. The leg was elevated and exsanguinated with Eschmark bandage and the tourniquet inflated to 250 mmHg pressure. The knee was approached through an approximately 18 cm incision centered over the patella and carried into the knee through a medial parapatellar arthrotomy. The anterior osteophytes and soft tissues were removed. The rotational landmarks of Dixon's line and the transepicondylar axis were marked on the femur with electrocautery, and intramedullary guide holes for the femur and tibia were created. The distal femoral cut was made in 6 degrees of valgus using the in tramedullary guide at the primary cut setting. The proximal tibial cut was then made using the intramedullary guide, taking 7 mm of bone off the less involved medial side. The extension gap was checked and the rotation of the femoral component confirmed with the gap balancing system. The anterior, posterior and chamfer cuts were then made. The posterior osteophytes and soft tissues were then removed. The posterior capsule was injected with part of a mixture of 50 ml 0.25% Marcaine mixed with 20 ml Exparel and 4 mg of morphine for post-operative pain control. The remainder of this mixture was injected into the capsule and subcutaneous tissues during cement curing. The tibia was prepared with the rotation set by an extra medullary guide. Trial tibial and femoral components were then placed and the intercondylar notch cut through the femoral trial. Range of motion was 0-135 degrees, with good stability throughout the range. The patella was then cut to accommodate the patellar prosthetic. There was no need for a lateral release. The trials were then removed, and the femoral hole plugged with a bone plug. The bone was prepared with pulsatile lavage, and dried with a sponge. Cement was applied and the final prosthetics placed. Excess cement was removed during and after cement curing. After confirming there was no extruded cement posteriorly, the final tibial insert was placed. The knee was copiously irrigated and the tourniquet deflated. Hemostasis was obtained. The capsule was closed with interrupted # 2 polyester suture. The subcutaneous layer was closed with 3-0 Vicryl, and the skin with a running 3-0 V-Lock suture and Dermabond. An Aquacel Ag dressing was applied and the patient was taken to recovery having tolerated the procedure well. Complications: none Post-operative Condition: stable Disposition: PACU Plan for aftercare: The patient will be maintained on a standard total knee replacement protocol with weight bearing as tolerated. The patient will receive aspirin and sequential compression devices for DVT prophylaxis. The patient will be discharged home when safe for the home environment.
[2022-03-03] MEDS: IBUPROFEN 400 MG TABLET PO ×4 (12:15→23:46)
[2022-03-03] MEDS: LACTATED RINGERS 1,000 ML 100 ML IV (12:15)
[2022-03-03] MEDS: ACETAMINOPHEN 325 MG TABLET 650 MG PO ×3 (12:15→23:47)
[2022-03-03] MEDS: OXYCODONE IR 5 MG TABLET PO (13:13)
[2022-03-03] MEDS: HYDROMORPHONE 2 MG TABLET PO (13:55)
--- NOTE | 2022-03-03 15:16 | PT.IIE ---
Current Diagnoses Unilateral primary osteoarthritis, right knee (03/03/22) Surgery Performed Operation Date: 03/03/22 07:45 Actual Procedures p Total Knee Arthroplasty(Right) - Vlad Fairbanks MD Medical History (Last Reviewed 03/03/22 @ 06:55 by Diego Blackwood RN) Acid reflux Anxiety attack Cervical cancer Depression Easy bruisability Eczema Fusion of spine of cervical region (~2014) Gluten intolerance HLD (hyperlipidemia) Osteoarthritis PTSD (post-traumatic stress disorder) Seasonal allergies Physical Therapy Inpatient Evaluation/Re-Eval M1 PT/OT-IP Prior Functional Status Start: 03/03/22 16:45 Freq: NEEDED Status: Active Protocol: Document 03/03/22 15:16 AB (Rec: 03/03/22 16:56 AB [id number]) Medical Review Prior Functional Status Medical History Reviewed Yes Communication able to make needs known Mobility and Gait pt stated that she is independent with all mobilities and ambulation without AD Social History Household Members spouse Living Arrangements House Number of Floors (Floors) One Floor Number of Stairs To Enter/Railing? 1 step to enter Home Environment Standard Height Toilet,Walk in Shower Home Equipment Four Wheel Walker,Shower Seat with Backrest,Hand Held Shower ,Grab Bars Near Toilet M2 PT-IP Current Condition Start: 03/03/22 16:45 Freq: NEEDED Status: Active Protocol: Document 03/03/22 15:16 AB (Rec: 03/03/22 16:56 AB [id number]) Physical Therapy Current Condition Current Condition Evaluation Date 03/03/22 Treatment Diagnosis s/p R TKA; difficulty in walking Onset Date 03/03/22 M3 PT-IP Subjective Start: 03/03/22 16:45 Freq: NEEDED Status: Active Protocol: Document 03/03/22 15:16 AB (Rec: 03/03/22 16:56 AB [id number]) Subjective Physical Therapy Visit Type Type Re-Evaluation Visit Start Time 15:16 Visit Stop Time 16:00 Total Visit Minutes 44 Number of WRAPPER CASER Visits 0 Physical Therapy Visit Comments Patient Comments agreeable to do PT Therapy Pain Assessment Pain When Pain Assessed At Rest Pain Present Pain Present Pain Reported Location Right Knee Intensity 8 Scale Used Numeric (0 - 10) Pain Management Techniques Apply Cold,Distraction, Modification of Treatment,Re- positioning,Timing of Activity with Medications M4 PT-IP Mobility and Gait Start: 03/03/22 16:45 Freq: NEEDED Status: Active Protocol: Document 03/03/22 15:16 AB (Rec: 03/03/22 16:56 AB [id number]) PT-Bed Mobility Assessment Supine to Sit Supine to Sit Standby Assistance Sit to Supine Sit to Supine Standby Assistance PT-Transfer Assessment Sit to and From Stand Sit to and from Stand Moderate Assistance,Maximum Assistance,1 Person Assistance ,Use of Upper Extremities Equipment Transfer Assistive Device Gait Belt,Front Wheeled Walker Orthotic/Prosthetic Devices or Brace: No Transfers Transfer Destination Bed,Bedside Commode Transfer Technique Stand Step Pivot Transfer Ability Level of Assist Moderate Assistance,Maximum Assistance,1 Person Assistance ,Use of Upper Extremities Comments Mobility Comments BP: 124/71 completed supine to sit SBA. able to sit on EOB SBA. c/o initial nausea. BP 121/77. found sheet to be wet and informed pt. pt agreed to use the toilet. completed sit to stand mod to max A and max cues for RLE steadiness. completed step transfer to bedside commode mod to max A and max cues using FWW. sit to stand bedside commode mod A and was able to maintain standing using fWW for support mod A while NAC assisted the hyiene care and brief management. pt took ~ 3 steps towards HOB using FWW mod to max A and cues for RLE steadiness. pt presents with R foot drop and full motor control on RLE is not back yet after surgery. pt completed sit to supine SBA. positioned pt in bed. call light and table placed within reach. Gait Assessment Gait Gait Assistance Required: Moderate Assistance,Maximum Assistance Distance (Feet) 2 Able to Maintain Weight Bearing Status Yes During Gait Assistive Devices Assistive Device Gait Belt,Front Wheeled Walker Orthotic/Prosthetic Devices or Brace: No Gait Deviations General Gait Pattern Antalgic,Decreased Stride Length,Decreased Feet Clearance,Step-to Gait Factors Limiting Gait Function Factors Limiting Gait Function Decreased Activity Tolerance, Decreased Strength,Limited Range of Motion,Pain,Poor Balance,Poor Safety Awareness Comments Gait Comments able to take steps during transfers PT-Balance Assessment Sitting Balance and Reactions Static Sitting Balance Ability Good Dynamic Sitting Balance Ability Good Standing Balance and Reactions Static Standing Balance Ability Fair Dynamic Standing Balance Ability Poor Device Used FWW M5 PT-IP Objective Assessments Start: 03/03/22 16:45 Freq: NEEDED Status: Active Protocol: Document 03/03/22 15:16 AB (Rec: 03/03/22 16:56 AB [id number]) Orientation Orientation/Cognition Level of Alertness Alert Orientation Name,Place,Situation Language Function Ability No Deficits Noted Safety Awareness Decreased Safety Awareness Memory Description No Deficits Noted Gross Range of Motion Lower Extremity ROM Assessment Right Impaired Impairments R knee flexion: ~ 50 deg Strength Lower Extremity Strength Assessment Right Impaired Hip 3+/5 Knee 3+/5 Ankle R foot drop M6 PT-IP Treatment Start: 03/03/22 16:45 Freq: NEEDED Status: Active Protocol: Document 03/03/22 15:16 AB (Rec: 03/03/22 16:56 AB [email or web address]) Physical Therapy Treatment Education Education Provided Precautions,Weight Bearing Status,Safety M7 PT-IP Assessment and Plan Start: 03/03/22 16:45 Freq: NEEDED Status: Active Protocol: Document 03/03/22 15:16 AB (Rec: 03/03/22 16:56 AB [email or web address]) PT Summary Assessment and Plan Potential Rehabilitation Potential Good Status of Condition at Evaluation Evolving Summary Impairments Pain,ROM,Strength,Balance, Coordination,Sensation,Tone, Cognition,Bed Mobility, Transfers,Gait,Activity Tolerance Assessment Summary pt requiring mod to max A with mobility using FWW and unable to ambulate much today. pt presents with RLE foot drop affecting mobility. will continue to assess progress. caregiver training set up tomorrow at 10 am. pt also only has a 4WW. pt wanted a FWW dispensed to her through the hospital. Goals Bed Mobility Goal Independent Transfer Goal Independent,Front Wheeled Walker Gait Goal Independent,Front Wheel Walker Gait Distance 200 Other Goals improve ambulation using 4WW 250 ft SBA Days to Meet Goals 5 Frequency of Treatment Frequency Of Treatment Twice a Day Treatment Plan Physical Therapy Treatment Plan Bed Mobility Training,Transfer Training,Gait Training, Therapeutic Exercise,Balance Retraining,Post Op Education, Discharge Planning,Hot or Cold Pack,Neuromuscular Re-ed, Coordination Retraining,Manual Therapy Other Recommendations and Next Treatment Caregiver training 03/04/22 10 Focus am ; needs FWW dispense if not safe with 4WW Weight Bearing Status Weight Bearing Status Weight Bear as Tolerated Allowed Weight Bearing Amount (enter % RLE WBAT or #) (%) Recommendations To Nursing Amount of Assist Needed 1 Person Assist Discharge Recommendations PT Discharge Recommendations Home with 02/05 Assist Available,Home Health, Outpatient PT Equipment Needed for Home Before FWW Discharge Transportation Needs at Discharge Private Vehicle
[2022-03-03] MEDS: OXYCODONE IR 10 MG TABLET PO (17:48)
[2022-03-03] MEDS: ESCITALOPRAM 10 MG TABLET 5 MG PO (20:22)
[2022-03-03] MEDS: MONTELUKAST 10 MG TABLET PO (20:22)
[2022-03-03] MEDS: DOCUSATE 100 MG CAPSULE PO (20:22)
[2022-03-03] MEDS: ASPIRIN EC 81 MG TABLET PO (20:22)
[2022-03-03] MEDS: ATORVASTATIN 20 MG TABLET 10 MG PO (20:22)
[2022-03-04 00:16] VITALS: BP 118/74; PULSE 74; RESP 16; TEMP 36.1; O2SAT 92
[2022-03-04] MEDS: IBUPROFEN 400 MG TABLET PO ×2 (04:24→08:34)
[2022-03-04 04:31] VITALS: BP 112/63; PULSE 82; RESP 17; TEMP 36.3; O2SAT 95
[2022-03-04] MEDS: ACETAMINOPHEN 325 MG TABLET 650 MG PO ×2 (05:07→11:12)
[2022-03-04 06:11] LABS: Hematocrit 30.5 % (36-46); Hemoglobin 10.4 g/dL (12.0-16.0)
--- NOTE | 2022-03-04 07:47 | PM.DS.1 ---
History of Present Illness History of Present Illness Date Patient Seen: 03/04/22 Time Patient Seen: 07:47 Chief complaint: OPB Narrative: The history and physical is contained in the chart previously completed note. Please refer to that note for this information. Discharge Providers Provider Date of admission: March 03, 2022 Discharge Date: 03/04/22 Primary care physician: Razia Syed PA-C Consults: 03/03/22 11:32 Consult to Discharge Planning Routine Comment: Consult to Physical Therapy Evaluate & Treat Comment: Physician Instructions: postop TKA protocol Consult to Respiratory Therapy Evaluate & Treat Comment: Physician Instructions: Evaluate and treat Discharge provider: Vlad Fairbanks MD Summary Hospital Course Discharge Diagnosis: 1. Right knee osteoarthritis 2. Post hemorrhagic anemia 3. Footdrop postoperatively Hospital Course: The patient was admitted to the hospital and taken directly to the operating room on March 03, 2022. She underwent a right total knee replacement without complications. On postoperative day 1 she was starting to feel her leg. She had a mild post hemorrhagic anemia which we anticipate will spontaneously resolve. She was noted to have intact but reduced light touch sensation in the peroneal nerve distribution. She could dorsiflex her toes but not her ankle. Status at Discharge Cognitive/behavioral status at discharge: at baseline, oriented Functional status at discharge: uses cane/walker Overall status at discharge: patient is progressing back to baseline Time Spent with Patient Time spent: Less than 30 minutes Exam Vital Signs (past 8 hours): - 03/04/22 00:16 03/04/22 04:31 Temperature 97.0 F L 97.3 F L Pulse Rate 74 82 Respiratory Rate 16 17 Blood Pressure 118/74 112/63 Pulse Oximetry 92 95 Oxygen Delivery Method Room Air Oxygen Flow Rate 0 Narrative Exam Narrative: Wound is dressed on the right leg with no drainage on the bandage. Calf is soft. Light touch is present in the tibial nerve distribution and mildly reduced in the superficial and deep peroneal nerve distribution. She can plantar flex her toes and ankle she can dorsiflex her toes but not her ankle. Objective Labs Result Diagrams: 03/04/22 06:00 Labs: Laboratory Results - last 24 hr 03/04/22 06:00 Hgb 10.4 L Hct 30.5 L PFSH Medical History Acid reflux Anxiety attack Cervical cancer Depression Easy bruisability Eczema Fusion of spine of cervical region (~2014) Gluten intolerance HLD (hyperlipidemia) Osteoarthritis PTSD (post-traumatic stress disorder) Seasonal allergies Surgical History (Updated 02/23/22 @ 10:15 by Milly Zavala RN) History of bilateral tubal ligation History of hysterectomy History of tonsillectomy Hx of bilateral cataract extraction Hx of dilation and curettage Social History household members: spouse Smoking Status: Never smoker alcohol intake: current Discharge Assessment & Plan Assessment and Plan Assessment: She is stable postoperative day 1 status post right total knee replacement. She did have a wide dispersion of local anesthetic to help with pain control which included Exparel. This will last until tomorrow. It appears that some of this did contact her peroneal nerve and this is leading to what is likely a temporary postoperative footdrop. Plan of Treatment: She left physical therapy this morning. She likely will be discharged later in the day. She will follow up in my office in 2 weeks. We will observe her for neurologic recovery as the anesthetic wears off. Prescription for oxycodone has been sent to her pharmacy. Instructions for the use of Tylenol for additional pain control, Naprosyn as she does at baseline and aspirin for DVT prophylaxis of also been given. Discharge Plan Discharge Plan Patient Disposition: Home Discharge orders & Medications Discharge Orders: Discharge (Order); Ordered 03/04/22 Ordered By: Vlad Fairbanks Prescriptions: New acetaminophen 325 mg Tablet 650 mg PO Q6HR 30 Days 0RF aspirin 81 mg Tablet,Delayed Release (Dr/Ec) 81 mg PO BID 42 Days Qty: 84 0RF oxycodone 5 mg Tablet 5 mg PO Q4H PRN (Reason: Pain, Moderate (4-6)) Qty: 40 0RF Continued escitalopram oxalate 5 MG tablet 5 mg PO BEDTIME Qty: 0 0RF cholecalciferol (vitamin D3) [Vitamin D3] 2,000 UNIT capsule 4,000 iu PO QDAY Qty: 0 0RF naproxen sodium [Aleve] 220 MG capsule 220 mg PO DAILY PRN (Reason: Pain) Qty: 0 0RF alprazolam [Xanax] 0.5 mg Tablet 0.5 mg PO DAILY PRN (Reason: Anxiety) 0RF montelukast 10 mg Tablet 10 mg PO BEDTIME 0RF fluticasone propionate 50 mcg/actuation [place],Suspension 2 spray INTRANASAL DAILY 0RF Rx Instructions: administer into each nostril rosuvastatin 5 mg Tablet 5 mg PO BEDTIME 0RF Follow up/Referrals: Razia Syed PA-C [Primary Care Provider] - Vlad Fairbanks MD [Physician] - 2 Weeks Diet/Activity/Treatments Diet: Diet as Tolerated and Regular Activity: You may bear weight as tolerated on your right leg. Cold/Heat Therapy: You may apply ice for 15 minutes every hour as needed to the right knee for pain control. Skin/Wound/Dressing Care Report to your healthcare provider any signs of infection, such as:: chills, fever, night sweats, increased pain, unusual drainage and unusual redness Dressing: You may remove the Leander wrap 3 days after surgery and shower normally with the deeper dressing in place. Leave the deeper dressing in place until your postoperative follow-up. If the central strip of the deeper dressing becomes saturated with either water or blood, please call the office to have it evaluated. Visit Report/Discharge Packet Instructions: DI for Knee Replacement Stand Alone Forms: Surgery Discharge Discharge Data Primary Care Provider: Razia Syed Attending Provider: Vlad Fairbanks Quality VTE Deep Vein Thrombosis/Pulmonary Embolism Present on Admission: No
[2022-03-04 08:22] VITALS: BP 123/77; PULSE 66; RESP 16; TEMP 36.2; O2SAT 97
[2022-03-04] MEDS: CHOLECALCIFEROL (VITAMIN D3) 1,000 UNIT TABLET 4000 UNIT PO (08:31)
[2022-03-04] MEDS: ASPIRIN EC 81 MG TABLET PO (08:33)
[2022-03-04] MEDS: DOCUSATE 100 MG CAPSULE PO (08:33)
[2022-03-04] MEDS: OXYCODONE IR 10 MG TABLET PO (08:34)
[2022-03-04] MEDS: polyethylene glycoL 3350 17 GM POWD.PACK PO (08:34)
--- NOTE | 2022-03-04 10:08 | PT.IPTN ---
Current Diagnoses Unilateral primary osteoarthritis, right knee (03/03/22) Surgery Performed Operation Date: 03/03/22 07:45 Actual Procedures p Total Knee Arthroplasty(Right) - Vlad Fairbanks MD Physical Therapy Treatment Note M2 PT-IP Current Condition Start: 03/03/22 16:45 Freq: NEEDED Status: Discharge Protocol: Document 03/03/22 15:16 AB (Rec: 03/03/22 16:56 AB [id number]) Physical Therapy Current Condition Current Condition Evaluation Date 03/03/22 Treatment Diagnosis s/p R TKA; difficulty in walking Onset Date 03/03/22 M3 PT-IP Subjective Start: 03/03/22 16:45 Freq: NEEDED Status: Discharge Protocol: Document 03/04/22 10:08 AB (Rec: 03/04/22 12:17 AB [email or web address]) Subjective Physical Therapy Visit Type Type Treatment Note Visit Start Time 10:08 Visit Stop Time 10:42 Total Visit Minutes 34 Number of TELECOMMUNICATIONS NETWORK PLANNER Visits 0 Physical Therapy Visit Comments Patient Comments agreeable to do PT Therapy Pain Assessment Pain When Pain Assessed At Rest Pain Present Pain Present Pain Reported Location Right Knee Intensity 5 Scale Used Numeric (0 - 10) Pain Management Techniques Apply Cold,Distraction, Modification of Treatment,Re- positioning,Timing of Activity with Medications M4 PT-IP Mobility and Gait Start: 03/03/22 16:45 Freq: NEEDED Status: Discharge Protocol: Document 03/04/22 10:08 AB (Rec: 03/04/22 12:17 AB [id number]) PT-Bed Mobility Assessment Supine to Sit Supine to Sit Standby Assistance PT-Transfer Assessment Sit to and From Stand Sit to and from Stand Contact Guard Assistance,1 Person Assistance,Use of Upper Extremities Equipment Transfer Assistive Device Gait Belt,Front Wheeled Walker Orthotic/Prosthetic Devices or Brace: No Transfers Transfer Destination Chair Transfer Technique ambulated Transfer Ability Level of Assist Contact Guard Assistance,1 Person Assistance,Use of Upper Extremities Comments Mobility Comments spouse in room for caregiver training. pt completed supine to sit SBa. able to sit on EOB SBA. spouse was able to put safety belt on pt. educated on how to assist pt. spouse assisted pt with sit to stand and ambulated pt using fWW to the chair CGA. educated pt with stair climbing. spouse assisted pt with ambulation towards platform step ~ 30 ft using FWW. completed up/down step using fWW and spouse assisting CGA to min A. pt ambulated back to her room and sat on chair. positioned on chair. call light and table placed within reach. FWW dispensed to pt as requested. pt signed papers. Gait Assessment Gait Gait Assistance Required: Contact Guard Assist,1 Person Assist Distance (Feet) 30 Able to Maintain Weight Bearing Status Yes During Gait Assistive Devices Assistive Device Gait Belt,Front Wheeled Walker Orthotic/Prosthetic Devices or Brace: No Gait Deviations General Gait Pattern Antalgic,Decreased Stride Length,Decreased Feet Clearance,Step-to Gait Factors Limiting Gait Function Factors Limiting Gait Function Decreased Activity Tolerance, Decreased Sensation,Decreased Strength,Limited Range of Motion,Pain,Poor Balance,Poor Safety Awareness Stair Climbing Assessment Evaluation Level of Assist On Stairs Contact Guard Assistance, Minimal Assistance Devices Stair Climbing Assistive Devices Front Wheel Walker Technique/Endurance Stair Climbing Direction Ascend and Descend Stair Climbing Technique Step to Step Number of Steps Climbed 1 Stair Climbing Set # Repetitions (reps) 2 M5 PT-IP Objective Assessments Start: 03/03/22 16:45 Freq: NEEDED Status: Discharge Protocol: Document 03/03/22 15:16 AB (Rec: 03/03/22 16:56 AB [id number]) Orientation Orientation/Cognition Level of Alertness Alert Orientation Name,Place,Situation Language Function Ability No Deficits Noted Safety Awareness Decreased Safety Awareness Memory Description No Deficits Noted Gross Range of Motion Lower Extremity ROM Assessment Right Impaired Impairments R knee flexion: ~ 50 deg Strength Lower Extremity Strength Assessment Right Impaired Hip 3+/5 Knee 3+/5 Ankle R foot drop M6 PT-IP Treatment Start: 03/03/22 16:45 Freq: NEEDED Status: Discharge Protocol: Document 03/04/22 10:08 AB (Rec: 03/04/22 12:17 AB [email or web address]) Physical Therapy Treatment Education Education Provided Safety Equipment Issued Equipment Type and Company FWW dispensed: [id number] PT-IP Assessment and Plan Start: 03/03/22 16:45 Freq: NEEDED Status: Discharge Protocol: Document 03/04/22 10:08 AB (Rec: 03/04/22 12:17 AB [email or web address]) PT Summary Assessment and Plan Potential Rehabilitation Potential Good Summary Impairments Pain,ROM,Strength,Balance, Coordination,Sensation,Tone, Cognition,Bed Mobility, Transfers,Gait,Activity Tolerance Progress Towards Goals Progressing Toward Goals Assessment Summary caregiver training conducted and spouse was able to assist pt safely. pt plans to go home today. pt has outpt PT scheduled. Goals Bed Mobility Goal Independent Transfer Goal Independent,Front Wheeled Walker Gait Goal Independent,Front Wheel Walker Gait Distance 200 Other Goals improve ambulation using 4WW 250 ft SBA Days to Meet Goals 5 Frequency of Treatment Frequency Of Treatment Twice a Day Treatment Plan Physical Therapy Treatment Plan Bed Mobility Training,Transfer Training,Gait Training, Therapeutic Exercise,Balance Retraining,Post Op Education, Discharge Planning,Hot or Cold Pack,Neuromuscular Re-ed, Coordination Retraining,Manual Therapy Weight Bearing Status Weight Bearing Status Weight Bear as Tolerated Allowed Weight Bearing Amount (enter % RLE WBAT or #) (%) Recommendations To Nursing Amount of Assist Needed 1 Person Assist Discharge Recommendations PT Discharge Recommendations Home with Assistance, Outpatient PT Transportation Needs at Discharge Private Vehicle
--- NOTE | 2022-03-04 10:48 | CM.DANOTE ---
DCP: Case received, EMR reviewed and met with patient. Introduced self and role. Was able to complete DCP assessment based upon information currently available. Patient is a 76 year old female who admitted yesterday morning to the care of the orthopedic team. PCP: BRADY Carson. P[facility] Patient came to the hospital via private vehicle for a surgical procedure. Patient had right total knee replacement. Patient has history of right knee osteoarthritis. Met with patient in her room. She is alert and oriented. She resides here in [place] with her spouse, Alirio. At her baseline, she is independent and drives. She did get a four wheel walker for use after surgery, but now has FWW as recommended by P.T. Confirmed that her spouse will be able to assist her when she goes home. P: Patient is to be discharged home today, she will work with P.T. again before she leaves. Rica Benson RN/Rehab Care Assistant Discharge Planning/Care Management CM Discharge Assessment Start: 03/04/22 10:45 Freq: Status: Active Protocol: Document 03/04/22 10:46 (Rec: 03/04/22 10:48 [id number]) Discharge Planning Assessment Assigned Replanting Machine Crewman Rica Benson RN/Rehab Care Assistant Advance Directives? Yes Advance Directives on File No History Provided By Patient,Medical Record Prior Living Arrangements House Household Members spouse Type of transporation used prior to Drives own vehicle admit Independent with ADL's Yes Is patient alert and oriented? Yes Caregiver for Another No DME Already Rented / Owned FWW / Walker Comment Had recently borrowed four wheel walker, but now has FWW recommended by P.T. Patient/Family Preference OP PT Therapy Barriers to Discharge No Discharge Plan Home Whiteboard Updated in Patient Room with Yes name and ext. # of Replanting Machine Crewman Review Status In Process Next Review Type Continued Stay Review Pre-Anesthesia Assessment Start: 02/23/22 10:01 Freq: Status: Complete Protocol: Document 02/23/22 10:01 [facility] (Rec: 02/23/22 10:28 [facility] [id number]) Pre-Anesthesia Assessment Patient Information Reviewed Via Phone Assessment Assessment Completed With Patient Diagnostic Results BMP/CMP,CBC,EKG Comment Labs/ECG 02/15/22, COVID screen @ [facility] 03/01/22 Primary Care Provider Razia Syed Seen Specialist in Last 12 Months Yes Specialist Seen Orthopedist Primary Language Thai Battery Plate Assembler Required No Height 5 ft 7 in Weight 143 lb Body Mass Index (BMI) 22.4 Hearing Ability Normal Visual Impairment No Limitations Visual Assist None Dentition Type Teeth, Natural Present,Teeth, Missing Barriers to Learning None Hx Anesthesia Reactions No Hx Family Anesthesia Reaction No Hx Malignant Hyperthermia No Hx Blood Transfusions No Anesthesia Review Requested No alcohol intake current alcohol intake frequency a few times a week Smoking Status Never smoker Substance Use Type does not use Pain Present Pain Reported Musculoskeletal Symptoms Abnormal Gait,Difficulty Walking,Joint Pain History of Falling (Recent or History of No ) Patient is completely paralyzed or No completely immobile Mental Status Oriented to own ability Is patient on oxygen? No Does patient have CAZARES/SOB No Hx Sleep Apnea No Currently Taking a Beta Krystal No Can You Climb a Flight of Stairs Without Yes SOB Hx Chest Pain No Hx SOB No Hx Syncope or Dizziness No Anti-Coagulant Therapy No Has a Dental Appliance Mechanic No Cardiac Testing No Hx Pacemaker/ICD No Pacemaker Rep Required? No Cardiac Clearance Received Not Applicable Diet Type At Home Gluten Free dysphagia No Gastrointestinal Symptoms Reflux Urinary Catheter Present No Hx Urinary Self Catheterization No Diabetes No HgbA1C 5.6 Date 02/15/22 Patient No Lactating No Presence of External or Internal Medical Yes: Bilat eye IOLs Devices Have you had any close contact with No someone diagnosed with COVID-19? Received a COVID vaccine? Yes: Needs second booster Received all doses? Yes Marital Status Lives With spouse Prior Living Arrangements House Number of Floors (Floors) One Floor Support System Spouse Does the Patient Have Assistance After Yes Surgery Patient Discharge Plan Description Return Home Comment Pt advised overnight length of stay per surgeon Feels Safe in Current Environment Yes Been Physically Hurt or Threatened By a No Person in Current Environment Do you have thoughts of harming yourself None or others? Are you currently considering suicide? No Do you have a plan to hurt yourself or No Plan others? Do You Have Any Spiritual Beliefs That No May Affect Your HC Choices? Do You Have Any Cultural Practices That No May Affect Your HC Choices? Comment Manuel Who Can We Speak to About Patient's Care Family, friends Identifying Code for Release of Patient Declines to issue Information Health Care Proxy/Next of Kin Yoel () Health Care Proxy Emergency Contact Name Yoel () Emergency Contact Advance Directives? Yes Advance Directives on File No Requested Patient Bring Advanced Yes Directives DOS Power of Dual Rate Dealer Yes Power of Dual Rate Dealer Name Yoel () Power of Dual Rate Dealer PAC Instructions Do not shave/clip surgical site,Durable medical equipment ,Medications to take/avoid, Nasal antibiotic,No ETOH/ petroleum product on skin DOS, NPO,Post-op transportation,Pre -surgical wash,Sensory aids, Sturdy shoes/comfortable clothes,Do not bring valuables and remove jewelry
[2022-03-04] MEDS: HYDROMORPHONE 2 MG TABLET PO (11:12)
== END 2022-03-04 11:10 | disposition home or self-care (01) ==
LOC: OR 06:17 → AC 06:18
PROVIDERS: PCP Physician Assistant; Referring Provider Orthopaedic Surgery; Visit Provider Orthopaedic Surgery
PROC: 0SRC0JZ Replacement of Right Knee Joint with Synthetic Substitute, Open Approach (ICD-10-PCS; CPT 27447; principal; 2022-03-03 07:45)
DX: M17.11 Unilateral primary osteoarthritis, right knee (principal)
CPT/HCPCS: 27447; 36415; 73560; 85014; 85018; 97162; 97530; C1776; C1713; C9290; J0690; J1100; J2250; J2270; J2405; J2704; J3010

== ENCOUNTER → 2023-02-10 10:20 | Outpatient (CLI) | payer MEDICARE, OTHER, SELFPAY ==
[2022-03-03 11:39] VITALS: BMI 22.4
--- NOTE | 2023-02-10 | DI.MG.S_ITS ---
BILATERAL DIGITAL SCREENING MAMMOGRAM 3D/2D WITH CAD: 02/10/2023 CLINICAL: Routine screening. Family history of breast cancer. Comparison is made to exams dated: 07/27/2021 mammogram, 07/26/2020 mammogram, and 07/24/2019 mammogram - [facility]. There are scattered areas of fibroglandular density in both breasts (category b / 25%-50% glandular tissue). Current study was also evaluated with a Computer Aided Detection (CAD) system. No significant masses, calcifications, or other findings are seen in either breast. There has been no significant interval change. IMPRESSION: NEGATIVE There is no mammographic evidence of malignancy. A 1 year screening mammogram is recommended. Based on the Tyrer Cuzick model (a risk assessment model) the patient's lifetime risk is 2.1% and her 10 year risk is 2.1%. According to the ACR, ACS, and NCCN guidelines, an annual breast MRI exam along with mammogram is recommended if the patient's lifetime risk is 20% or greater. This exam was interpreted at Station ID: [id number]. NOTE: For mammograms, a report in lay terms will be sent to the patient. Approximately 15% of breast malignancies will not be visualized mammographically. In the management of a palpable breast mass, a negative mammogram must not discourage biopsy of a clinically suspicious lesion. Electronically Signed By: Maxx finch/layla:02/10/2023 11:06:37 copy to: Razia Syed letter sent: Normal Exam ACR BI-RADS Category 1: Negative [id number]
== END ==
PROVIDERS: PCP Physician Assistant; Referring Provider Physician Assistant; Visit Provider Physician Assistant
DX: Z12.31 Encounter for screening mammogram for malignant neoplasm of breast (principal); Z80.3 Family history of malignant neoplasm of breast
CPT/HCPCS: 77063; 77067